=== PATIENT | male | born 1955 | race Two or more races ===

== ENCOUNTER 2025-01-20 14:30 | Inpatient (IN) | payer MEDICARE ==
[~2025-01-20] VITALS: Ht 175.3 cm; Wt 88.5 kg
[2025-01-20 14:40] VITALS: O2SAT 96
[2025-01-20] MEDS ORDERED: LOSA25TA3 PO (15:06)
[2025-01-20] MEDS ORDERED: QUET25TA PO (15:06)
[2025-01-20] MEDS ORDERED: MAGNESIUM HYDROXIDE 30 ML UDC PO PRN (16:30)
[2025-01-20] MEDS ORDERED: MAG HYDROX/AL HYDROX/SIMETH 30 ML UDC PO PRN (16:30)
[2025-01-20] MEDS: BLOOD SUGAR DIAGNOSTIC 1 EACH STRIP IN ONE (16:43)
[2025-01-20 20:50] VITALS: BP 137/98; TEMP 98.2; O2SAT 96
[2025-01-21] MEDS ORDERED: ZOLPIDEM TARTRATE 5 MG TABLET PO PRN (01:30)
[2025-01-21 08:00] VITALS: BP 170/117; TEMP 99; O2SAT 98
[2025-01-21] MEDS: LOSARTAN POTASSIUM 25 MG TABLET PO SCH ×2 (08:40→16:40)
[2025-01-21 08:42] LABS: LDL 92.0 mg/dL (0-99)
[2025-01-21] MEDS: LORAZEPAM 1 MG TABLET PO PRN (08:43)
[2025-01-21 08:45] LABS: ASPARTATE AMINOTRANSFERASE 60.0 U/L (15-37); CALCIUM, SERUM 9.6 mg/dL (8.5-10.1); CREATININE 0.9 mg/dL (0.6-1.3); SODIUM SERUM 144.0 mmol/L (136-145); TOTAL PROTEIN, SERUM 8.4 g/dL (6.4-8.2); UREA NITROGEN, BLOOD 16.0 mg/dL (7-18)
[2025-01-21] MEDS: OLANZAPINE 10 MG VIAL IM ONE (11:29)
[2025-01-21 16:00] VITALS: BP 116/90; TEMP 98.1; O2SAT 99
[2025-01-21 20:24] VITALS: BP 148/98; TEMP 98.2; O2SAT 97
[2025-01-21] MEDS: LITHIUM CARBONATE 150 MG CAPSULE PO SCH (20:24)
[2025-01-22 16:13] VITALS: BP 160/116; TEMP 97.8; O2SAT 96
[2025-01-22] MEDS: LORAZEPAM 1 MG TABLET PO PRN (20:56)
[2025-01-22 21:03] VITALS: BP_SYST 131; BP_SYST 160; BP_DIAS 91; BP_DIAS 92; TEMP 98.2; O2SAT 98
[2025-01-22] MEDS: ZOLPIDEM TARTRATE 5 MG TABLET PO PRN (22:51)
[2025-01-23 08:00] VITALS: BP 135/92; TEMP 98.6; O2SAT 98
[2025-01-23 16:00] VITALS: BP 121/89; TEMP 98.2; O2SAT 95
[2025-01-23 19:57] VITALS: BP 117/77; TEMP 98.2; O2SAT 97
[2025-01-23] MEDS: Z GUARD REMEDY 4 OZ OINT TP SCH (21:22)
[2025-01-24 08:00] VITALS: BP 169/102; TEMP 98.8; O2SAT 98
[2025-01-24] MEDS: Z GUARD REMEDY 4 OZ OINT TP PRN (08:52)
[2025-01-24 16:00] VITALS: BP 147/92; TEMP 98; O2SAT 96
[2025-01-24] MEDS: ACETAMINOPHEN 325 MG TABLET PO PRN (16:16)
[2025-01-24 20:49] VITALS: BP 122/79; TEMP 97.5; O2SAT 97
[2025-01-24] MEDS: LITHIUM CARBONATE 150 MG CAPSULE PO SCH (21:02)
[2025-01-25 08:00] VITALS: BP 169/98; TEMP 98.2; O2SAT 97
[2025-01-25 16:00] VITALS: BP 138/83; TEMP 98.2; O2SAT 96
[2025-01-25 21:06] VITALS: BP 145/88; TEMP 98.2; O2SAT 96
[2025-01-26 08:00] VITALS: BP 154/98; TEMP 98.2; O2SAT 97
[2025-01-26 16:00] VITALS: BP 137/95; TEMP 97.8; O2SAT 99
[2025-01-26 20:58] VITALS: BP 115/62; TEMP 97.8; O2SAT 98
[2025-01-27 08:00] VITALS: BP 140/94; TEMP 98.4; O2SAT 99
[2025-01-27 16:00] VITALS: BP 148/84; TEMP 97.7; O2SAT 99
[2025-01-27 20:33] VITALS: BP 132/87; TEMP 97.8; O2SAT 98
[2025-01-28 08:00] VITALS: BP 126/76; TEMP 97.9; O2SAT 98
[2025-01-28 16:08] VITALS: BP 142/90; TEMP 99; O2SAT 96
[2025-01-28 20:55] VITALS: BP 137/75; TEMP 99; O2SAT 97
[2025-01-29 08:00] VITALS: BP 106/73; TEMP 97.7; O2SAT 98
[2025-01-29 16:00] VITALS: BP 113/87; TEMP 98.1; O2SAT 97
[2025-01-29 21:05] VITALS: BP 116/74; TEMP 98.2; O2SAT 98
[2025-01-30 07:51] VITALS: BP 121/73; TEMP 98.8; O2SAT 98
[2025-01-30 15:43] VITALS: BP 125/77; TEMP 98.8; O2SAT 96
[2025-01-30 20:11] VITALS: BP 120/67; TEMP 98.7; O2SAT 97
[2025-01-31 08:00] VITALS: BP 121/79; TEMP 97.9; O2SAT 95
[2025-01-31 16:00] VITALS: BP 110/80; TEMP 97.8; O2SAT 98
[2025-01-31 17:03] VITALS: BP 136/107
[2025-01-31 20:00] VITALS: BP 115/70; TEMP 97.7; O2SAT 99
[2025-02-01 08:00] VITALS: BP 104/67; TEMP 97.7; O2SAT 95
[2025-02-01] MEDS: LITHIUM CARBONATE 150 MG CAPSULE PO SCH (12:32)
[2025-02-01 16:00] VITALS: BP 112/71; TEMP 98.8; O2SAT 96
[2025-02-01 21:00] VITALS: BP 100/66; TEMP 97.8; O2SAT 99
[2025-02-02 07:55] VITALS: BP 110/67; TEMP 98.3; O2SAT 100
[2025-02-02 16:00] VITALS: BP 133/74; TEMP 98.4; O2SAT 98
[2025-02-02 20:00] VITALS: BP 115/66; TEMP 98.8; O2SAT 98
[2025-02-03 08:00] VITALS: BP 117/81; TEMP 98.2; O2SAT 97
[2025-02-03 16:00] VITALS: BP 132/76; TEMP 98.2; O2SAT 98
[2025-02-03 20:22] VITALS: BP 129/68; TEMP 98.2; O2SAT 98
[2025-02-04 08:00] VITALS: BP 122/81; TEMP 98.1; O2SAT 99
[2025-02-04 16:00] VITALS: BP 123/77; TEMP 98.1; O2SAT 97
[2025-02-04 22:07] VITALS: BP 109/71; TEMP 98.1; O2SAT 98
[2025-02-05 08:00] VITALS: BP 123/78; TEMP 97.5; O2SAT 97
[2025-02-05 08:04] VITALS: BP 123/98; TEMP 97.5; O2SAT 97
[2025-02-05 15:58] VITALS: BP 139/86; TEMP 98; O2SAT 97
[2025-02-05 20:31] VITALS: BP 147/79; TEMP 98.4; O2SAT 99
[2025-02-06 08:00] VITALS: BP 118/89; TEMP 98.2; O2SAT 99
[2025-02-06 16:00] VITALS: BP 126/85; TEMP 98.4; O2SAT 99
[2025-02-06 16:02] VITALS: BP 126/85; TEMP 98.4; O2SAT 99
[2025-02-06 20:06] VITALS: BP 140/75; TEMP 98.6; O2SAT 99
[2025-02-07 08:00] VITALS: BP 130/87; TEMP 98.5; O2SAT 99
[2025-02-07 16:00] VITALS: BP 122/80; TEMP 97.8; O2SAT 96
[2025-02-07 20:54] VITALS: BP 122/76; TEMP 98; O2SAT 97
[2025-02-08 08:00] VITALS: BP 112/59; TEMP 98.6; O2SAT 100
[2025-02-08 08:40] VITALS: BP 112/59
[2025-02-08] MEDS: HYDROCORTISONE 1% CREAM 28.35 GM TUBE TP SCH (08:42)
== END 2025-02-08 14:35 | DRG 885 ==
LOC: ER 14:53 → GPS 16:14
PROVIDERS: ADMIT Psychiatry & Neurology Psychiatry; ATTEND Internal Medicine
DX: F29 Unspecified psychosis not due to a substance or known physiological condition (principal); F79 Unspecified intellectual disabilities; F02.82 Dementia in other diseases classified elsewhere, unspecified severity, with psychotic disturbance; G31.09 Other frontotemporal neurocognitive disorder; I10 Essential (primary) hypertension; E66.9 Obesity, unspecified; F39 Unspecified mood [affective] disorder; F02.83 Dementia in other diseases classified elsewhere, unspecified severity, with mood disturbance; F02.84 Dementia in other diseases classified elsewhere, unspecified severity, with anxiety; F41.9 Anxiety disorder, unspecified; E78.5 Hyperlipidemia, unspecified; Z68.28 Body mass index [BMI] 28.0-28.9, adult; Z88.0 Allergy status to penicillin; R79.89 Other specified abnormal findings of blood chemistry; R53.1 Weakness; Z73.6 Limitation of activities due to disability; Z79.899 Other long term (current) drug therapy
CPT/HCPCS: 36415; 80053-TC; 80061-TC; 80178-TC; 82962-TC; 84439-TC; 84443-TC; 84481; 87081-TC; 97110-TC; 97116-TC; 97530-TC; J3490